=== PATIENT | male | born 1985 | race Caucasian/White ===

== ENCOUNTER 2016-09-09 20:37 | Emergency (ER) | payer OTHER ==
--- NOTE | 2016-09-09 21:17 | EDPHY ---
H & P Smoking Status: Never smoked Time Seen by Provider: 09/09/16 21:02 HPI/ROS: CHIEF COMPLAINT: Right thumb lac HISTORY OF PRESENT ILLNESS: This is a 31-year-old male presenting to emergency department complaining of laceration to right thumb. Patient states he was crushing coffee beans in a glass coffee press was trying to empty the coffee press and the glass broke. injury about 45 minutes prior to arrival, denies any other injuries. Tetanus vaccine up-to-date REVIEW OF SYSTEMS: Constitutional: No fever, no chills. Eyes: No blurred vision Cardiovascular: No chest pain Respiratory: no shortness of breath. Musculoskeletal: Right thumb laceration Skin: No rashes. Neurological: No headache. (Karen Roldan) Physical Exam: General Appearance: Alert and no distress. Eyes: Pupils equal and round no injection. Respiratory: Nonlabored respiratory effort Musculoskeletal: Neck full range of motion. Right thumb laceration 1.5 cm no tendon involvement full range of motion Extremities: full range of motion and are nontender. Skin: No rashes or lesions. (Karen Roldan) Constitutional: Initial Vital Signs Temperature (C) 36.9 C 09/09/16 20:38 Heart Rate 77 09/09/16 20:38 Respiratory Rate 18 09/09/16 20:38 Blood Pressure 169/110 H 09/09/16 20:38 O2 Sat (%) 95 09/09/16 20:38 O2 Delivery Mode Room Air Allergies/Adverse Reactions: penicillin G Allergy (Verified 09/09/16 20:40) Home Medications: Medication Instructions Recorded NK [No Known Home Meds] 09/09/16 Medical Decision Making Procedures: Procedure: Laceration repair. Verbal consent was obtained from the patient. 1.5 cm laceration on the right thumb. 3 ml bupivacaine digital block. The wound was irrigated. There were no deep structures involved. The wound was repaired 5-0 Prolene for sutures. The procedure was performed by myself. A dressing was applied by our EMT. ( Karen Roldan) ED Course/Re-evaluation: Discussed the plan of care: Wound irrigation, Laceration repair, splint 2225: Discussed discharge instructions with patient. Discharge home---> stable (Karen Roldan) The patient was evaluated and managed by the COMMUNITY ENGAGEMENT SPECIALIST. My cosignature indicates that I reviewed the chart and I agree with the findings and plan of care as documented. I am the secondary supervising physician. (Kayla Cunningham) Differential Diagnosis: Other differential diagnosis considered but not limited to finger amputation, and tendon involvement and open fracture (Karen Roldan) Departure - Departure Disposition: Home, Routine, Self-Care Clinical Impression: Laceration Condition: Good Instructions: Care For Your Stitches (ED), Laceration (ED) Additional Instructions: usDiscussed discharge instructions 1. Keep initial dressing on for 24 hours. Then daily dressing changes 2. The have sutures removed in 7-10 days, due the area of sutures out recommend using the finger splint as needed 3. Monitor for any signs of infection: Redness, red streaks, and Referrals: UNKNOWN,DR [Other] - As per Instructions [facility],. [Clinic] - As per Instructions
[2016-09-09 22:44] VITALS: BP 136/82; PULSE 74; RESP 16; TEMP 98.2; O2SAT 96
== END 2016-09-09 22:43 | disposition home or self-care (01) ==
PROC: 0HQFXZZ Repair Right Hand Skin, External Approach (ICD-10-PCS; principal; 2016-09-09)
DX: S61.011A Laceration without foreign body of right thumb without damage to nail, initial encounter (principal); W25.XXXA Contact with sharp glass, initial encounter
CPT/HCPCS: L3925